=== PATIENT | male | born 1965 | race Caucasian/White ===

== ENCOUNTER 2016-07-19 02:49 | Emergency (ER) | payer MEDICARE ==
[~2016-07-19] VITALS: Ht 165.1 cm; Wt 84.0 kg
[~2016-07-19 02:49] MED LIST: DSS100 PO; OMEP20 PO; OSCD250 PO; RISP2 PO
[2016-07-19] MEDS ORDERED: LISI-661 PO (02:58)
[2016-07-19 03:09] LABS: BASOPHILS # (AUTO) 0.03 K/uL (0.00-0.20); BASOPHILS % (AUTO) 0.4 % (0.0-2.0); EOSINOPHILS # (AUTO) 0.41 K/uL (0.00-0.70); EOSINOPHILS % (AUTO) 5.39 % (1.0-6.0); HEMATOCRIT 44.6 % (41-53); HEMOGLOBIN 15.1 g/dL (13.5-17.5); LYMPHOCYTES # (AUTO) 2.6 K/uL (1.0-4.8); MEAN CORPUSCULAR HEMOGLOBIN 30.7 pg (26.0-34.0); MEAN CORPUSCULAR HGB CONC 33.9 G/dL (31.0-37.0); MEAN CORPUSCULAR VOLUME 90 fL (80-100); MONOCYTES # (AUTO) 0.7 K/uL (0.1-1.0); MONOCYTES % (AUTO) 9.2 % (2.0-9.0); NEUTROPHILS # (AUTO) 3.9 K/uL (1.8-7.7); PLATELET COUNT (AUTO) 210 K/uL (150-450); RED BLOOD CELL COUNT(AUTO) 4.93 MIL/uL (4.50-5.90); RED CELL DISTRIBUTION WIDTH 14.3 % (11.5-14.5); WHITE BLOOD COUNT (AUTO) 7.6 K/uL (4.5-11.0)
[2016-07-19 03:20] LABS: ANION GAP 8 mmol/L (8-16); CALCIUM, TOTAL 8.6 mg/dL (8.8-10.5); CARBON DIOXIDE 27 mmol/L (22-29); CHLORIDE 104 mmol/L (98-107); CREATININE 0.97 mg/dL (0.60-1.30); GLOMERULAR FILTR. RATE CALC > 60 mL/min (>60); POTASSIUM 3.5 mmol/L (3.5-5.1); SODIUM SERUM 139 mmol/L (136-145); UREA NITROGEN, BLOOD 22 mg/dL (7-18)
[2016-07-19 03:26] LABS: ALANINE AMINOTRANSFERASE 19 U/L (12-78); ALBUMIN 3.6 g/dL (3.4-5.0); ASPARTATE AMINOTRANSFERASE 13 U/L (15-37); BILIRUBIN,TOTAL 0.4 mg/dL (0.1-1.0); TOTAL PROTEIN, SERUM 7.4 g/dL (6.4-8.2)
[2016-07-19] MEDS ORDERED: LORazepam 2 MG TABLET PO ONE (04:15)
[2016-07-19] MEDS ORDERED: HALOPERIDOL 5 MG TABLET PO ONE (04:15)
[2016-07-19 04:19] VITALS: BP 113/76
== END 2016-07-19 04:20 | disposition home or self-care (01) ==
LOC: EMS 02:51
DX: F20.9 Schizophrenia, unspecified (principal); I10 Essential (primary) hypertension; F32.9 Major depressive disorder, single episode, unspecified
CPT/HCPCS: 36415; 80053; 80307; 85025; 99284; G0480

== ENCOUNTER 2019-09-11 05:56 | Inpatient (IN) | payer MEDICARE, MEDICAID ==
[~2019-09-11] VITALS: Ht 165.1 cm; Wt 87.2 kg
[~2019-09-11 05:56] MED LIST changes: -DSS100 PO; +LISI-661 PO; -OMEP20 PO; -OSCD250 PO; -RISP2 PO; +RISP2TAB23 PO
[2019-09-11 06:46] LABS: EOSINOPHILS % (AUTO) 0.1 % (1.0-6.0); HEMATOCRIT 44.5 % (41-53); HEMOGLOBIN 15.2 g/dL (13.5-17.5); LYMPHOCYTES # (AUTO) 1.9 K/uL (1.0-4.8); LYMPHOCYTES % (AUTO) 19.1 % (22.0-44.0); MEAN CORPUSCULAR HEMOGLOBIN 31.3 pg (26.0-34.0); MEAN CORPUSCULAR HGB CONC 34.2 G/dL (31.0-37.0); MEAN CORPUSCULAR VOLUME 92 fL (80-100); MONOCYTES # (AUTO) 0.7 K/uL (0.1-1.0); MONOCYTES % (AUTO) 6.8 % (2.0-9.0); NEUTROPHILS # (AUTO) 7.3 K/uL (1.8-7.7); PLATELET COUNT (AUTO) 314 K/uL (150-450); RED BLOOD CELL COUNT(AUTO) 4.86 MIL/uL (4.50-5.90); RED CELL DISTRIBUTION WIDTH 15.4 % (11.5-14.5)
[2019-09-11 06:55] LABS: ANION GAP 17 mmol/L (8-16); CALCIUM, TOTAL 8.5 mg/dL (8.8-10.5); CARBON DIOXIDE 23 mmol/L (22-29); CHLORIDE 99 mmol/L (98-107); CREATININE 0.86 mg/dL (0.60-1.30); GLOMERULAR FILTR. RATE CALC > 60 mL/min (>60); GLUCOSE,RANDOM 118 mg/dL (70-110); POTASSIUM 3.7 mmol/L (3.5-5.1); SODIUM SERUM 139 mmol/L (136-145); UREA NITROGEN, BLOOD 14 mg/dL (7-18)
[2019-09-11 06:59] LABS: ALANINE AMINOTRANSFERASE 36 U/L (12-78); ALBUMIN 4.2 g/dL (3.4-5.0); ALKALINE PHOSPHATASE 101 U/L (46-116); ASPARTATE AMINOTRANSFERASE 29 U/L (15-37); BILIRUBIN,TOTAL 0.4 mg/dL (0.1-1.0); TOTAL PROTEIN, SERUM 8.4 g/dL (6.4-8.2)
[2019-09-11 07:08] LABS: AMPHET/METH SCREEN,URINE NEGATIVE (NEGATIVE); BARBITURATE SCREEN, URINE NEGATIVE (NEGATIVE); BENZODIAZEPINES SCREEN,URINE NEGATIVE (NEGATIVE); CANNABINOID SCREEN,URINE POSITIVE (NEGATIVE); COCAINE SCREEN,URINE NEGATIVE (NEGATIVE); METHADONE SCREEN, URINE NEGATIVE (NEGATIVE); OPIATE SCREEN,URINE NEGATIVE (NEGATIVE)
[2019-09-11 07:10] LABS: PHENCYCLIDINE SCREEN,URINE NEGATIVE (NEGATIVE)
[2019-09-11] MEDS ORDERED: SODIUM CHLORIDE 0.9% 1,000 ML IV ONE (07:15)
[2019-09-11] MEDS ORDERED: MAG HYDROX/AL HYDROX/SIMETH 30 ML SUSP UDCUP PO ONE (07:15)
[2019-09-11] MEDS: FAMOTIDINE 10 MG/ML 2 ML VIAL IVP ONE ×2 (07:37→07:38)
[2019-09-11] MEDS ORDERED: LORazepam 2 MG/ML VIAL ONE (08:18)
[2019-09-11] MEDS ORDERED: LORazepam 2 MG/ML VIAL IVP ONE (08:30)
[2019-09-11] MEDS ORDERED: LORazepam 1 MG TABLET PO ONE (10:15)
[2019-09-11] MEDS ORDERED: LORazepam 2 MG TABLET PO PRN ×2 (11:00→14:00)
[2019-09-11] MEDS ORDERED: PETROLATUM,WHITE 28 GM JELLY TP PRN (13:15)
[2019-09-11] MEDS ORDERED: IBUPROFEN 400 MG TABLET PO PRN (13:15)
[2019-09-11] MEDS ORDERED: LOPERAMIDE HCL 2 MG CAPSULE PO PRN (13:15)
[2019-09-11] MEDS ORDERED: ONDANSETRON HCL 4 MG TABLET PO PRN (13:15)
[2019-09-11] MEDS ORDERED: DOCUSATE SODIUM 100 MG CAPSULE PO PRN (13:15)
[2019-09-11] MEDS ORDERED: MAGNESIUM HYDROXIDE SUSPENSION 30 ML UDCUP PO PRN (13:15)
[2019-09-11] MEDS ORDERED: MAG HYDROX/AL HYDROX/SIMETH ES 30 ML SUSPENSION UDCUP PO PRN (13:15)
[2019-09-11] MEDS ORDERED: ACETAMINOPHEN 325 MG TABLET PO PRN (13:15)
[2019-09-11] MEDS ORDERED: NICOTINE 14 MG/24 HOUR PATCH TD PRN (13:15)
[2019-09-11] MEDS ORDERED: ALBUTEROL SULFATE HFA 90 MCG/PUFF 8 GM INHALER IH PRN (13:15)
[2019-09-11] MEDS ORDERED: CloNIDine HCL 0.1 MG TABLET PO PRN (13:15)
[2019-09-11] MEDS ORDERED: GuaiFENesin/D-METHORPHAN [SUGAR-FREE] 200-20MG/10 ML SYRUP UDCUP PO PRN (13:15)
[2019-09-11 14:06] VITALS: BP 135/78
[2019-09-11 14:32] LABS: GLUCOMETER DEV NAME(LOC) BV2X.; GLUCOSE,POINT OF CARE 84 MG/DL (70-110)
[2019-09-11] MEDS ORDERED: PNEUMOCOCCAL VACCINE POLYVALENT 0.5 ML VIAL [PPSV23] IM ONE (14:45)
[2019-09-11] MEDS: LORazepam 2 MG TABLET PO PRN (14:47)
[2019-09-11 15:00] VITALS: BP 130/75
[2019-09-11 16:00] VITALS: BP 131/71
[2019-09-11 16:07] VITALS: BP 131/67
[2019-09-11] MEDS: HALOPERIDOL 5 MG TABLET PO PRN (16:29)
[2019-09-11 17:00] VITALS: BP 130/80
[2019-09-11 21:00] VITALS: BP 117/71
[2019-09-12] VITALS (7 sets, daily range): BP systolic 120–145; BP diastolic 81–91
[2019-09-12] MEDS: LORazepam 2 MG TABLET PO PRN ×2 (02:49→10:01)
[2019-09-12] MEDS ORDERED: LORazepam 2 MG TABLET PO PRN (07:00)
[2019-09-12] MEDS: LORazepam 2 MG TABLET PO SCH ×4 (08:10→20:29)
[2019-09-12] MEDS ORDERED: LORazepam 2 MG TABLET PO SCH (09:00)
[2019-09-12] MEDS: HALOPERIDOL 5 MG TABLET PO PRN ×2 (16:59→22:32)
[2019-09-12] MEDS: ZOLPIDEM TARTRATE 10 MG TABLET PO PRN (20:59)
[2019-09-13] MEDS: LORazepam 2 MG TABLET PO PRN ×3 (00:38→10:40)
[2019-09-13 00:44] VITALS: BP 130/96
[2019-09-13 00:45] VITALS: BP 130/96
[2019-09-13 08:00] VITALS: BP 131/92
[2019-09-13] MEDS: LORazepam 2 MG TABLET PO SCH ×4 (08:03→20:10)
[2019-09-13 08:38] VITALS: BP 131/92
[2019-09-13 16:23] VITALS: BP 136/89
[2019-09-13 16:24] VITALS: BP 136/89
[2019-09-14 00:16] VITALS: BP 128/88
[2019-09-14] MEDS: ZOLPIDEM TARTRATE 10 MG TABLET PO PRN ×2 (01:08→21:05)
[2019-09-14] MEDS: LORazepam 2 MG TABLET PO PRN (01:08)
[2019-09-14] MEDS ORDERED: LORazepam 1 MG TABLET PO PRN ×2 (07:00)
[2019-09-14] MEDS: LORazepam 1 MG TABLET PO SCH ×4 (08:35→20:20)
[2019-09-14 08:43] VITALS: BP 128/82
[2019-09-14] MEDS ORDERED: LORazepam 1 MG TABLET PO SCH (09:00)
[2019-09-14 10:05] VITALS: BP 128/82
[2019-09-14 16:18] VITALS: BP 126/86
[2019-09-14 16:46] VITALS: BP 126/86
[2019-09-15 00:04] VITALS: BP 132/82
[2019-09-15 00:05] VITALS: BP 132/82
[2019-09-15] MEDS ORDERED: LORazepam 1 MG TABLET PO PRN (07:00)
[2019-09-15 09:00] VITALS: BP 141/103
[2019-09-15] MEDS: LORazepam 1 MG TABLET PO PRN ×4 (09:24→22:14)
[2019-09-15 09:37] VITALS: BP 141/103
[2019-09-15 16:21] VITALS: BP 135/85
[2019-09-15 19:02] VITALS: BP 135/85
[2019-09-15] MEDS: ZOLPIDEM TARTRATE 10 MG TABLET PO PRN (22:14)
[2019-09-16 00:14] VITALS: BP 132/85
[2019-09-16 00:16] VITALS: BP 132/85
[2019-09-16 08:22] VITALS: BP 116/82
== END 2019-09-16 14:20 | disposition home or self-care (01) | DRG 885 ==
LOC: EMS 05:56 → B2X 11:17 → UNDOADMIN 11:17 → B2X 09-15 14:02 → UNDODISIN 09-16 14:20
PROVIDERS: ADMIT Psychiatry & Neurology Psychiatry; ATTEND Psychiatry & Neurology Psychiatry
DX: F25.1 Schizoaffective disorder, depressive type (principal); R45.851 Suicidal ideations; K21.9 Gastro-esophageal reflux disease without esophagitis; J44.9 Chronic obstructive pulmonary disease, unspecified; I10 Essential (primary) hypertension; K59.00 Constipation, unspecified; E11.9 Type 2 diabetes mellitus without complications; F41.9 Anxiety disorder, unspecified; F12.90 Cannabis use, unspecified, uncomplicated; F17.210 Nicotine dependence, cigarettes, uncomplicated; F10.20 Alcohol dependence, uncomplicated; Z59.0 Homelessness
CPT/HCPCS: 87081; 90732; G0480; J2060; J3490; J7030; Q0162